=== PATIENT | female | born 1970 | race Caucasian/White ===

== ENCOUNTER 2020-01-15 00:39 | Emergency (ER) | payer SELFPAY ==
[~2020-01-15] VITALS: Ht 170.2 cm; Wt 86.2 kg
[~2020-01-15 00:39] MED LIST: DESV50 PO; ISOMON30 PO
[2020-01-15 01:09] LABS: BASOPHILS ABSOLUTE AUTO 0.04 K/mm3 (0.00-0.23); BASOPHILS PERCENT AUTO 0 % (0-2); EOSINOPHILS ABSOLUTE AUTO 0.17 K/mm3 (0.00-0.68); EOSINOPHILS PERCENT AUTO 1 % (0-6); Hematocrit 42.3 % (33.0-51.0); Hemoglobin 14.4 g/dL (11.5-16.0); IMMATURE GRAN ABSOLUTE AUTO 0.03 K/mm3 (0.00-0.10); IMMATURE GRAN PERCENT AUTO 0 % (0-1); LYMPHOCYTES ABSOLUTE AUTO 3.58 K/mm3 (0.84-5.20); LYMPHOCYTES PERCENT AUTO 29 % (21-46); MONOCYTES ABSOLUTE AUTO 1.15 K/mm3 (0.16-1.47); MONOCYTES PERCENT AUTO 9 % (4-13); Mean Corpuscular HGB 31.9 pg (26.0-34.0); Mean Corpuscular Volume 94 fL (80-100); NEUTROPHILS ABSOLUTE AUTO 7.33 K/mm3 (1.96-9.15); NEUTROPHILS PERCENT AUTO 60 % (41-73); Platelet Count 211 K/mm3 (150-400); RDW Coefficient Variation 13.2 % (11.7-14.2); RDW Standard Deviation 45.1 fL (35.1-46.3); Red Blood Cell Count 4.51 M/mm3 (3.80-5.20)
[2020-01-15 01:28] LABS: Troponin I <0.015 ng/mL (0.000-0.040)
[2020-01-15 01:29] LABS: Alanine Aminotransfer (ALT/SGP 18 U/L (12-78); Albumin, Blood 3.6 g/dL (3.4-5.0); Alk Phos 40 U/L (50-136); Anion Gap 5 mmol/L (6-16); Aspartate Aminotrans (AST/SGOT 5 U/L (12-37); Bilirubin, Total 0.4 mg/dL (0.1-1.0); Blood Urea Nitrogen 19 mg/dL (8-24); Bun/Creatinine Ratio 20.1 (12.0-20.0); CO2, Blood 25 mmol/L (21-32); Calcium, Blood 8.7 mg/dL (8.5-10.1); Chloride, Blood 108 mmol/L (98-108); Creatinine, Blood 0.95 mg/dL (0.40-1.00); Globulin, Blood 3.5 g/dL (2.2-4.0); Glomerular Filtration Rate >60 (60-); Glucose, Blood 98 mg/dL (70-99); Potassium, Blood 3.6 mmol/L (3.5-5.5); Sodium, Blood 138 mmol/L (136-145); Total Protein, Blood 7.1 g/dL (6.4-8.2)
== END 2020-01-15 05:20 | disposition home or self-care (01) ==
LOC: ER 00:39
PROVIDERS: Emergency Medicine
DX: R10.13 Epigastric pain (principal); Z88.1 Allergy status to other antibiotic agents
CPT/HCPCS: 36415; 71046; 76705; 80053; 83690; 83735; 84484; 85025; 93005; 93010; J1170

== ENCOUNTER 2020-01-19 22:01 | Inpatient (IN) | payer SELFPAY ==
[~2020-01-19] VITALS: Ht 170.2 cm; Wt 89.4 kg
[2020-01-19 23:22] LABS: Hematocrit 37.3 % (33.0-51.0); Mean Corpuscular HGB 31.6 pg (26.0-34.0); Mean Corpuscular HGB Conc 34.9 g/dL (31.5-36.5); Mean Corpuscular Volume 91 fL (80-100); Mean Platelet Volume 10.8 fL (9.1-12.4); Platelet Count 225 K/mm3 (150-400); RDW Coefficient Variation 13.7 % (11.7-14.2); RDW Standard Deviation 45.7 fL (35.1-46.3); Red Blood Cell Count 4.11 M/mm3 (3.80-5.20); White Blood Cell Count 12.97 K/mm3 (4.00-11.30)
[2020-01-19 23:52] LABS: Alanine Aminotransfer (ALT/SGP 29 U/L (12-78); Albumin, Blood 2.5 g/dL (3.4-5.0); Albumin/Globulin Ratio 0.6 (0.8-1.8); Alk Phos 119 U/L (50-136); Anion Gap 11 mmol/L (6-16); Aspartate Aminotrans (AST/SGOT 22 U/L (12-37); Bilirubin, Total 2.1 mg/dL (0.1-1.0); Blood Urea Nitrogen 17 mg/dL (8-24); Bun/Creatinine Ratio 17.7 (12.0-20.0); CO2, Blood 23 mmol/L (21-32); Chloride, Blood 106 mmol/L (98-108); Creatinine, Blood 0.96 mg/dL (0.40-1.00); Globulin, Blood 4.5 g/dL (2.2-4.0); Glomerular Filtration Rate >60 (60-); Glucose, Blood 118 mg/dL (70-99); Potassium, Blood 3.1 mmol/L (3.5-5.5); Sodium, Blood 140 mmol/L (136-145); Troponin I <0.015 ng/mL (0.000-0.040)
[2020-01-20 00:07] LABS: BAND PERCENT MAN 25 % (0-8); BASOPHILS PERCENT MAN 0 % (0-2); EOSINOPHILS PERCENT MAN 0 % (0-6); LYMPHOCYTES ABSOLUTE MAN 0.12 K/mm3 (0.84-5.20); LYMPHOCYTES PERCENT MAN 1 % (21-46); MONOCYTES ABSOLUTE MAN 0.64 K/mm3 (0.16-1.47); MONOCYTES PERCENT MAN 5 % (4-13); NEUTROPHILS ABSOLUTE MAN 12.19 K/mm3 (1.96-9.15); SEG NEUTROPHILS PERCENT MAN 69 % (41-73); TOTAL CELLS COUNTED 100
[2020-01-20 00:34] LABS: International Normalized Ratio 1.12; Prothrombin Time Results 11.9 Sec (9.7-11.5)
[2020-01-20 00:36] LABS: Source, Urine Clean Catch
[2020-01-20 00:39] LABS: Blood, Urine 2+ (Neg); Glucose Qualitative, Urine Neg (Neg); Ketones, Urine 3+ (Neg); Leukocyte Esterase, Urine 1+ (Neg); Nitrite, Urine Neg (Neg); Protein, Urine 2+ (Neg); Specific Gravity, Urine 1.015 (1.003-1.022); Urobilinogen, Urine 1+ (Normal)
[2020-01-20 00:42] LABS: Appearance, Urine Hazy (Clear); Bilirubin, Urine 1+ (Neg); Color, Urine Amber (P-Yellow)
[2020-01-20 00:46] LABS: Bacteria Mod /hpf; Red Blood Cells, Urine 0-2 /hpf (0-2); Squamous Epithelial Cells Few /hpf (Few)
[2020-01-20] MEDS ORDERED: ASCO500 PO (03:32)
[2020-01-20] MEDS ORDERED: ACET500 PO (03:33)
[2020-01-20] MEDS ORDERED: MYLANTA GAS MIN42 MG PO (03:33)
[2020-01-20] MEDS ORDERED: NAPR500 PO (03:34)
--- NOTE | 2020-01-20 05:08 | NUR ---
ASSUMED CARE OF PATIENT AT APPROXIMATELY 0325 FROM ED PARI Inman PATIENT ARRIVED TO UNIT VIA STRETCHER; TRANSFER FROM ED TO PCU VERBAL CUES. PATIENT ALERT AND ORIENTED X4; SBA OUT OF BED. PATIENT REPORTS PAIN IN ABDOMEN 5-7; 10 WITH SPASMS; PATIENT YELLS OUT IN PAIN; REPORT PAIN MEDICATION WAS WEARING OFF SHORTLY UPON ARRIVAL TO UNIT; CALLED DR. SARAVIA; ORDERS FOR ONE TIME DOSE. PATIENT ANXIOUS; REPORTS SCD'S MAKE HER FEEL MORE ANXIOUS; CURRENTLY REFUSING. PATIENT'S JEWELRY AND CONTACTS TAKEN OUT; PATIENT TO TAKE BELONGINGS WITH HIM; PATIENT TO HAVE SURGERY THIS MORNING; TOLD BY ER SHE WAS FIRST IN LINE. ADMISSION COMPLETE. NPO. IVF INFUSING PER ORDER. PATIENT CURRENTLY RESTING IN BED; CALL LIGHT IN REACH; BED IN LOWEST POSISTION; WILL CONTINUE TO MONITOR AND ASSESS UNTIL END OF SHIFT.
[2020-01-20 05:18] LABS: Hematocrit 33.3 % (33.0-51.0); Hemoglobin 11.7 g/dL (11.5-16.0); Mean Corpuscular HGB 31.9 pg (26.0-34.0); Mean Corpuscular HGB Conc 35.1 g/dL (31.5-36.5); Mean Corpuscular Volume 91 fL (80-100); Mean Platelet Volume 10.6 fL (9.1-12.4); Platelet Count 210 K/mm3 (150-400); RDW Coefficient Variation 13.8 % (11.7-14.2); RDW Standard Deviation 46.2 fL (35.1-46.3); Red Blood Cell Count 3.67 M/mm3 (3.80-5.20); White Blood Cell Count 20.59 K/mm3 (4.00-11.30)
[2020-01-20 05:28] LABS: Anion Gap 8 mmol/L (6-16); Blood Urea Nitrogen 15 mg/dL (8-24); Bun/Creatinine Ratio 17.4 (12.0-20.0); CO2, Blood 23 mmol/L (21-32); Calcium, Blood 8.3 mg/dL (8.5-10.1); Chloride, Blood 110 mmol/L (98-108); Creatinine, Blood 0.86 mg/dL (0.40-1.00); Glomerular Filtration Rate >60 (60-); Glucose, Blood 115 mg/dL (70-99); Potassium, Blood 3.7 mmol/L (3.5-5.5); Sodium, Blood 141 mmol/L (136-145)
[2020-01-20 05:51] LABS: BAND PERCENT MAN 20 % (0-8); BASOPHILS PERCENT MAN 0 % (0-2); EOSINOPHILS PERCENT MAN 0 % (0-6); LYMPHOCYTES ABSOLUTE MAN 0.41 K/mm3 (0.84-5.20); LYMPHOCYTES PERCENT MAN 2 % (21-46); MONOCYTES ABSOLUTE MAN 0.82 K/mm3 (0.16-1.47); MONOCYTES PERCENT MAN 4 % (4-13); NEUTROPHILS ABSOLUTE MAN 19.35 K/mm3 (1.96-9.15); SEG NEUTROPHILS PERCENT MAN 74 % (41-73); TOTAL CELLS COUNTED 100
--- NOTE | 2020-01-20 06:47 | NUR ---
PATIENT DID NOT SLEEP; MEDICATED FOR PAIN PER EMAR. URSULA FROM SURGERY CALLED; ON WAY TO BUOY TENDER PATIENT; S/L PATIENT. VSS. WILL CONTINUE TO MONITOR AND ASSESS UNTIL END OF SHIFT.
--- NOTE | 2020-01-20 07:15 | NUR ---
pt was taken to OR at shift change.
--- NOTE | 2020-01-20 07:18 | NUR ---
INTO SDS VIA GURNEY FROM PCU ROOM. History, Chart, Medications and Allergies reviewed before start of procedure.Patient confirms NPO status and agrees with scheduled surgery. Lungs clear T/O to Auscultation. Surgical site prepped with 2% Chlorhexidine cloth wipe.
--- NOTE | 2020-01-20 08:14 | NUR ---
01/20/20 0814 Henrietta Guardado PT ON SCHEDULED ANTIBIOTICS
--- NOTE | 2020-01-20 12:01 | NUR ---
pt returned to room from pacu report was given from Alexx RN, she came back with ng drainging red fluid, on lis, she is nausiated, zofran was given, montoya cath draining dk urine, she is a/ox3, pleasant and cooperative with care, lungs are clear, she is currently on 5 liters oxy, no cough noted, hrr, tele in place running sr per monitor, see strip, no edema noted, ppp+2, cap refill <3sec, vs stable, afebrile, iv sites are clear and patent, infusing lr at 100ml/hr, abd has midline incision with luh dressing, and braeden drain in place draining red fluid, she had a laparotomy, fredi pan, call light in reach.
--- NOTE | 2020-01-20 12:09 | NUR ---
pt left for surgical floor report was given to recieving nurse. taken via bed with all her belongings, and spouce in attendence.
--- NOTE | 2020-01-20 12:25 | NUR ---
PATIENT TRANSFER NOTE: PATIENT WAS TRANSFERRED AT THIS TIME. SHE IS ALERT AND ORIENTATED. SHE HAS HER NG TUBE ON LOW SUCTION WITH SOME REDISH/BROWN OUTPUT. HER MIDLINE DENICE AND SHILA DRAIN SITES OR D/C/I. SHE IS CURRENTLY ON AN OXIMIZER WITH 4L. I WAS ABLE TO GIVE HER SOME PAIN MEDICATION PER EMAR TO HELP HER. SHE STATED THAT SHE IS COMFORTABLE FOR NOW. CALL LIGHT IS WITHIN REACH. PATIENT HAS A GUEST WITH HER AT BEDSIDE. SHE IS ALSO NPO AND HAS SOME WET ORAL SPONGES CURRENTLY. WILL CONTINUE TO MONITOR AND MEDICATE NEEDED.
--- NOTE | 2020-01-20 15:42 | NUR ---
SHIFT SUMMARY: PT WAS TRANSFERRED HERE MIDWAY THROUGH SHIFT. SHE HAS AN NG TUBE THAT HAS DARK RED/MALOU COLOR. SHE HAS A SHILA DRAIN AND A MIDLINE DENICE DRESSING. SHILA DRAIN HAS SEROSANGUINEOUS IN THE BULB. THE MIDLINE DENICE DRESSING IS D/C/I. PATIENT HAS BEEN SLEEPY BUT AROUSABLE DURING SHIFT. SHE IS ALERT AND ORIENTED X4. SHE IS CURRENTLY NPO, BUT IS HAVING WET ORAL SPONGES. SHE HAD A FRIEND WITH HER IN THE ROOM EARLIER. WILL CONTINUE TO MONITOR UNTIL ONCOMING SHIFT.
--- NOTE | 2020-01-20 17:57 | NUR ---
Per admit trigger, I met with pt to offer information about ACP. she was clearly in too much pain/discomfort for this conversation. I left information with spouse.
[2020-01-21 05:00] LABS: Hematocrit 33.4 % (33.0-51.0); Hemoglobin 11.5 g/dL (11.5-16.0); Mean Corpuscular HGB 31.7 pg (26.0-34.0); Mean Corpuscular HGB Conc 34.4 g/dL (31.5-36.5); Mean Corpuscular Volume 92 fL (80-100); Mean Platelet Volume 10.8 fL (9.1-12.4); Platelet Count 247 K/mm3 (150-400); RDW Coefficient Variation 14.3 % (11.7-14.2); RDW Standard Deviation 48.4 fL (35.1-46.3); Red Blood Cell Count 3.63 M/mm3 (3.80-5.20); White Blood Cell Count 22.39 K/mm3 (4.00-11.30)
[2020-01-21 05:16] LABS: Albumin, Blood 1.7 g/dL (3.4-5.0); Anion Gap 7 mmol/L (6-16); Blood Urea Nitrogen 14 mg/dL (8-24); Bun/Creatinine Ratio 17.1 (12.0-20.0); CO2, Blood 25 mmol/L (21-32); Calcium, Blood 8.5 mg/dL (8.5-10.1); Chloride, Blood 109 mmol/L (98-108); Creatinine, Blood 0.82 mg/dL (0.40-1.00); Glomerular Filtration Rate >60 (60-); Glucose, Blood 104 mg/dL (70-99); Phosphorus, Blood 2.1 mg/dL (2.5-4.9); Potassium, Blood 3.5 mmol/L (3.5-5.5); Sodium, Blood 141 mmol/L (136-145)
[2020-01-21 05:22] LABS: BAND PERCENT MAN 34 % (0-8); BASOPHILS PERCENT MAN 0 % (0-2); EOSINOPHILS PERCENT MAN 0 % (0-6); LYMPHOCYTES ABSOLUTE MAN 0.67 K/mm3 (0.84-5.20); LYMPHOCYTES PERCENT MAN 3 % (21-46); MONOCYTES ABSOLUTE MAN 0.67 K/mm3 (0.16-1.47); MONOCYTES PERCENT MAN 3 % (4-13); NEUTROPHILS ABSOLUTE MAN 21.04 K/mm3 (1.96-9.15); SEG NEUTROPHILS PERCENT MAN 60 % (41-73); TOTAL CELLS COUNTED 100
--- NOTE | 2020-01-21 06:58 | NUR ---
SHIFT SUMMARY: CHRISTOPH IS A&OX4. SHE HAS REPORTED DIFFICULTIES WITH PAIN. ORDER TO INCREASE FENTANYL TO Q2 PRN FROM Q4 PRN OBTAINED. ABAD PATENT, DRAINING SARIAH URINE. SHE USES HER CALL LIGHT APPROPRIATELY. NG TUBE TO LOW, INTERMITTENT SUCTION. SHE IS USING THE YAUNKER TO HELP HER CLEAR THE SECRETIONS. SHE IS LYING IN BED WITH HER CALL LIGHT IN REACH. WILL REPORT TO DAY SHIFT RN.
--- NOTE | 2020-01-21 11:12 | NUR ---
DR CLEVELAND HERE TO SEE PT, DR RECENTLY CALLED PER PT REQ FOR SOMETHING FOR THROAT, ALSO REQ TO HAVE NICOTINE PATCH. SEE ORDERS.
--- NOTE | 2020-01-21 12:48 | NUR ---
DR PIERCE HERE TO SEE PT.
--- NOTE | 2020-01-21 18:12 | NUR ---
SHIFT SUMMARY PT BEEN NPO. PT NOW ABLE TO HAVE ICE CHIPS. PT CONT TO HAVE NGT, SHILA. JENNIFFER WAS DC'D THIS AFTERNOON WITH PT NOT VOIDING YET. PT WAS UP TO CHAIR EARLIER TODAY. PT PAIN NOW CONTROLLED WITH CLAY PROCESSING LABOURER. PT HAS PIC IN PLACE. FAMILY IN/OUT OF ROOM.
[2020-01-22 05:42] LABS: Hematocrit 30.4 % (33.0-51.0); Hemoglobin 10.3 g/dL (11.5-16.0); Mean Corpuscular HGB 31.2 pg (26.0-34.0); Mean Corpuscular HGB Conc 33.9 g/dL (31.5-36.5); Mean Corpuscular Volume 92 fL (80-100); Mean Platelet Volume 10.9 fL (9.1-12.4); Platelet Count 273 K/mm3 (150-400); RDW Coefficient Variation 14.3 % (11.7-14.2); RDW Standard Deviation 48.6 fL (35.1-46.3); White Blood Cell Count 26.01 K/mm3 (4.00-11.30)
[2020-01-22 06:01] LABS: BAND PERCENT MAN 12 % (0-8); BASOPHILS PERCENT MAN 0 % (0-2); EOSINOPHILS PERCENT MAN 0 % (0-6); LYMPHOCYTES ABSOLUTE MAN 1.04 K/mm3 (0.84-5.20); LYMPHOCYTES PERCENT MAN 4 % (21-46); MONOCYTES ABSOLUTE MAN 1.56 K/mm3 (0.16-1.47); MONOCYTES PERCENT MAN 6 % (4-13); SEG NEUTROPHILS PERCENT MAN 78 % (41-73); TOTAL CELLS COUNTED 100
[2020-01-22 06:03] LABS: Albumin, Blood 1.5 g/dL (3.4-5.0); Anion Gap 7 mmol/L (6-16); Blood Urea Nitrogen 16 mg/dL (8-24); Bun/Creatinine Ratio 20.1 (12.0-20.0); CO2, Blood 26 mmol/L (21-32); Calcium, Blood 8.1 mg/dL (8.5-10.1); Chloride, Blood 107 mmol/L (98-108); Glomerular Filtration Rate >60 (60-); Glucose, Blood 78 mg/dL (70-99); Phosphorus, Blood 2.4 mg/dL (2.5-4.9); Potassium, Blood 3.5 mmol/L (3.5-5.5); Sodium, Blood 140 mmol/L (136-145)
--- NOTE | 2020-01-22 08:40 | NUR ---
DR. CLEVELAND NOTIFIED AT THIS TIME OF PT'S HYPERTENSION, SEE NEW ORDERS.
--- NOTE | 2020-01-22 18:35 | NUR ---
SUMMARY: PT IS POD 2 FOR GRAM PATCH. NO ACUTE CHANGE TODAY. HTN NOTED, GIVEN PRN HYDRALAZINE, ASYMPTOMATIC. ALL OTHER VSS. A/O. SURGICAL SITES WNL. SP02 >90% ON RA. PT REPORTS ELECTRIC LOCOMOTIVE FIRER/FIREMAN MANAGING PAIN WELL. PT ABLE TO TAKE X2 WALKS IN THE [place] WAY. PT HAS DENIED N/V, ABD IS MILDLY DISTENDED. MINIMAL OUT FROM NGT. DR. PIERCE MADE AWARE OF NGT OUTPUT, PLAN TO KEEP TO SUCTION OVERNIGHT. PT ATTENTIVE AT BEDSIDE. NO SAFETY CONCERNS AT THIS TIME.
--- NOTE | 2020-01-23 05:51 | NUR ---
SHIFT SUMMARY POD 3 AA0X4, VSS. PT PAIN TOLERABLE WITH MACHINE ENGRAVER, OCCASIONAL BACK PAIN THAT WAS DIFFICULT TO MANAGE WITH MEDICATION, K PACK PLACED ON BACK FOR COMFORT AND FREQUENT REPOSITIONING. DRESSING CDI. PT UP TO BSC COMMODE, VOIDING WELL. PT REPORTS PASSING GAS AND HAS ATTEMPTED TO HAVE BM. AMBULATES WELL TO BATHROOM, MINIMAL WEAKNESS. DENIES SOB ON EXERTION. 1L OXYGEN PROVIDED DURING SLEEP, SATS REMAINED ABOVE 92 ON 1L. NGT ON LOW INTERMITTENT, MINIMAL OUTPUT TODAY. SHILA PATENT AND DRAINING. AFFECT FLAT THROUGHOUT THE SHIFT, BUT PATIENT HAS STILL MAINTAINED MAKING JOKES WITH STAFF TODAY.
[2020-01-23 09:59] LABS: Albumin, Blood 1.8 g/dL (3.4-5.0); Anion Gap 8 mmol/L (6-16); BASOPHILS ABSOLUTE AUTO 0.03 K/mm3 (0.00-0.23); BASOPHILS PERCENT AUTO 0 % (0-2); Blood Urea Nitrogen 18 mg/dL (8-24); Bun/Creatinine Ratio 20.4 (12.0-20.0); CO2, Blood 26 mmol/L (21-32); Calcium, Blood 8.2 mg/dL (8.5-10.1); Chloride, Blood 106 mmol/L (98-108); Creatinine, Blood 0.88 mg/dL (0.40-1.00); EOSINOPHILS ABSOLUTE AUTO 0.05 K/mm3 (0.00-0.68); EOSINOPHILS PERCENT AUTO 0 % (0-6); Glomerular Filtration Rate >60 (60-); Glucose, Blood 82 mg/dL (70-99); Hematocrit 33.2 % (33.0-51.0); Hemoglobin 11.2 g/dL (11.5-16.0); IMMATURE GRAN ABSOLUTE AUTO 0.09 K/mm3 (0.00-0.10); IMMATURE GRAN PERCENT AUTO 1 % (0-1); LYMPHOCYTES ABSOLUTE AUTO 1.33 K/mm3 (0.84-5.20); LYMPHOCYTES PERCENT AUTO 9 % (21-46); MONOCYTES ABSOLUTE AUTO 1.06 K/mm3 (0.16-1.47); MONOCYTES PERCENT AUTO 7 % (4-13); Mean Corpuscular HGB Conc 33.7 g/dL (31.5-36.5); Mean Corpuscular Volume 92 fL (80-100); Mean Platelet Volume 10.8 fL (9.1-12.4); NEUTROPHILS ABSOLUTE AUTO 12.69 K/mm3 (1.96-9.15); NEUTROPHILS PERCENT AUTO 83 % (41-73); Phosphorus, Blood 3.5 mg/dL (2.5-4.9); Platelet Count 305 K/mm3 (150-400); Potassium, Blood 3.4 mmol/L (3.5-5.5); RDW Coefficient Variation 14.2 % (11.7-14.2); RDW Standard Deviation 47.7 fL (35.1-46.3); Red Blood Cell Count 3.61 M/mm3 (3.80-5.20); Sodium, Blood 140 mmol/L (136-145); White Blood Cell Count 15.25 K/mm3 (4.00-11.30)
--- NOTE | 2020-01-23 11:57 | NUR ---
PT LEFT UNIT AT ABOUT 11:00 FOR UPPER GI STUDY. NOW BACK IN ROOM
--- NOTE | 2020-01-23 16:54 | NUR ---
SUMMARY: PT DID WELL TODAY. NO ACUTE CHANGE. VSS, A/O. SURGICAL SITES WNL. NGT DC'D BY DR. PIERCE THIS AM. PT WILL BE ABLE TO HAVE CLEAR LIQUIDS FOR BREAKFAST TOMORROW . PT AND TOOK WALKS IN THE [place] X2, PT IS HAVING LIQUID BM'S. PT REPORTS THAT WEB ASSISTANT IS MANAGING PAIN. NO N/V, ABD IS SOFT, MILDLY DISTENDED. NO SAFETY CONCERNS. WILL CTM AND REPORT TO LANIE YAÑEZ.
[2020-01-24 04:09] LABS: BASOPHILS ABSOLUTE AUTO 0.03 K/mm3 (0.00-0.23); BASOPHILS PERCENT AUTO 0 % (0-2); EOSINOPHILS ABSOLUTE AUTO 0.13 K/mm3 (0.00-0.68); EOSINOPHILS PERCENT AUTO 1 % (0-6); Hematocrit 28.8 % (33.0-51.0); Hemoglobin 9.9 g/dL (11.5-16.0); IMMATURE GRAN ABSOLUTE AUTO 0.15 K/mm3 (0.00-0.10); IMMATURE GRAN PERCENT AUTO 1 % (0-1); LYMPHOCYTES ABSOLUTE AUTO 1.36 K/mm3 (0.84-5.20); LYMPHOCYTES PERCENT AUTO 10 % (21-46); MONOCYTES ABSOLUTE AUTO 1.06 K/mm3 (0.16-1.47); MONOCYTES PERCENT AUTO 8 % (4-13); Mean Corpuscular HGB 31.2 pg (26.0-34.0); Mean Corpuscular HGB Conc 34.4 g/dL (31.5-36.5); Mean Corpuscular Volume 91 fL (80-100); Mean Platelet Volume 10.4 fL (9.1-12.4); NEUTROPHILS ABSOLUTE AUTO 11.22 K/mm3 (1.96-9.15); NEUTROPHILS PERCENT AUTO 81 % (41-73); Platelet Count 301 K/mm3 (150-400); RDW Coefficient Variation 13.7 % (11.7-14.2); RDW Standard Deviation 46.3 fL (35.1-46.3); Red Blood Cell Count 3.17 M/mm3 (3.80-5.20); White Blood Cell Count 13.95 K/mm3 (4.00-11.30)
[2020-01-24 04:30] LABS: Albumin, Blood 1.6 g/dL (3.4-5.0); Anion Gap 6 mmol/L (6-16); Blood Urea Nitrogen 15 mg/dL (8-24); Bun/Creatinine Ratio 19.4 (12.0-20.0); CO2, Blood 25 mmol/L (21-32); Calcium, Blood 7.7 mg/dL (8.5-10.1); Chloride, Blood 108 mmol/L (98-108); Creatinine, Blood 0.77 mg/dL (0.40-1.00); Glomerular Filtration Rate >60 (60-); Glucose, Blood 101 mg/dL (70-99); Potassium, Blood 3.5 mmol/L (3.5-5.5); Sodium, Blood 139 mmol/L (136-145)
--- NOTE | 2020-01-24 04:41 | NUR ---
SHIFT SUMMARY POD 3 AA0X4, VSS. PT HAS BEEN REPORTING THAT PAIN HAS BEEN INCREASED TODAY. RADIO PRODUCER IS BARELY MANAGING PAIN PER PT. SHE REPORTS BEING ABLE TO SLEEP BUT STILL HAS AN OCCASIONAL GRIMACE ON HER FACE. SHE HAS BEEN ABLE TO AMBULATE TO THE BATHROOM WITH MINIMAL ASSIST. PASSING FLATUS, STILL HAVING LOOSE STOOL. SHILA MINIMAL DRAINAGE TODAY. PICCO COMPRESSED NO DRAINAGE NOTED. TOLERATING PO FLUIDS WELL, NO NAUSEA REPORTED.
--- NOTE | 2020-01-24 17:13 | NUR ---
SHIFT SUMMARY PT A&OX4, VSS, TELE S& 84 BPM, KPAD FOR BACK, PWRGLIDE SUPA. POD4 EXP LAP W/ MARIA DEL CARMEN PATCH, MIDLINE DENICE WNL, SHILA W/SEROUS FLUID 10 MLS OUT, PASSING FLATUS. VOIDING WELL. YVES PO CL DIET. PAIN MANAGED WELL WITH 5 MG NORCO AND LANGUAGE INSTRUCTOR FENT PRN/PT REP DECREASED USE LANGUAGE INSTRUCTOR WITH PO NORCO; LR @ [facility] FOR LANGUAGE INSTRUCTOR; ABX SCHEDULED. AMB TO BRP/HALLWAY, UP TO CHAIR. TCDB & I.S. EDU & ENC Q1H. WILL REPORT TO ONCOMING NOC RN.
--- NOTE | 2020-01-25 06:17 | NUR ---
SHIFT SUMMARY: CHRISTOPH IS A&OX4. VSS, NO ACUTE EVENTS OVERNIGHT. SHE REPORTS SIGNIFICANTLY IMPROVED PAIN CONTROL WITH ONE TABLET OF NORCO 5/325 MG. SHE IS INDEPENDENT TO THE BATHROOM AND IN THE HALLWAY. IV AND POWERGLIDE TO R ARM PATENT. SHE IS TOLERATING CLEAR LIQUID DIET WELL. SHE REPORTS PASSING FLATUS AND LIQUID STOOL. SHE USES HER CALL LIGHT APPROPRIATELY. SHE STATES THAT SHE PLANS TO REMAIN A NONSMOKER AFTER DISCHARGE HOME. SHE IS LYING IN BED WITH HER CALL LIGHT IN REACH. WILL REPORT TO DAY SHIFT RN.
[2020-01-25 06:34] LABS: Hematocrit 32.4 % (33.0-51.0); Hemoglobin 10.9 g/dL (11.5-16.0); Mean Corpuscular HGB 30.7 pg (26.0-34.0); Mean Corpuscular HGB Conc 33.6 g/dL (31.5-36.5); Mean Corpuscular Volume 91 fL (80-100); Mean Platelet Volume 11.2 fL (9.1-12.4); Platelet Count 363 K/mm3 (150-400); RDW Coefficient Variation 13.5 % (11.7-14.2); RDW Standard Deviation 46.1 fL (35.1-46.3); Red Blood Cell Count 3.55 M/mm3 (3.80-5.20); White Blood Cell Count 13.41 K/mm3 (4.00-11.30)
[2020-01-25 06:49] LABS: Albumin, Blood 1.6 g/dL (3.4-5.0); Anion Gap 6 mmol/L (6-16); Blood Urea Nitrogen 11 mg/dL (8-24); Bun/Creatinine Ratio 16.4 (12.0-20.0); CO2, Blood 25 mmol/L (21-32); Calcium, Blood 7.9 mg/dL (8.5-10.1); Chloride, Blood 105 mmol/L (98-108); Creatinine, Blood 0.67 mg/dL (0.40-1.00); Glomerular Filtration Rate >60 (60-); Glucose, Blood 96 mg/dL (70-99); Phosphorus, Blood 3.6 mg/dL (2.5-4.9); Potassium, Blood 3.6 mmol/L (3.5-5.5); Sodium, Blood 136 mmol/L (136-145)
--- NOTE | 2020-01-25 18:46 | NUR ---
SHIFT SUMMARY PT A&OX4, VSS, RA, TELE NSR 73 BPM. POD5 EXP LAP, MIDLINE DENICE WNL, SHILA WITH MINIMAL SEROUS OUT. PAIN MANAGED WITH 5-10 NORCO. POWERGLIDE SUPA, SL EXCEPT FOR ABX ORDERED. AMBULATING TO BRP AND HALLWAY INDEPENDENTLY, UP TO CHAIR T/O SHIFT. YVES REG DIET, DENIES N&V. WILL REPORT TO ONCOMING NOC RN.
--- NOTE | 2020-01-26 04:22 | NUR ---
SHIFT SUMMARY: NO SIGNIFICANT CHANGES THIS SHIFT. PT POD#6 FOR GRAM PATCH R/T PERF ULCER. ACTIVE BT THROUGHOUT. PT REPORTS PASSING FLATUS AND LIQ BM'S. YVES PO. DENIES N/V. SHILA DRAINING A SMALL AMOUNT OF SEROUS FLUID. DENICE WOUND VAC INTACT AND COMPRESSED. PAIN BEING MANAGED WITH 2 NORCO Q4. INDEPENDENT IN ROOM. VOIDING WELL. IV ABX INFUSING PER ORDERS. PLAN TO D/C BOTH SHILA AND DENICE DRESSING TODAY FOR POSSIBLE DISCHARGE.
[2020-01-26 08:40] LABS: Hematocrit 33.1 % (33.0-51.0); Hemoglobin 11.3 g/dL (11.5-16.0); Mean Corpuscular HGB 31.5 pg (26.0-34.0); Mean Corpuscular HGB Conc 34.1 g/dL (31.5-36.5); Mean Corpuscular Volume 92 fL (80-100); Mean Platelet Volume 11.2 fL (9.1-12.4); Platelet Count 433 K/mm3 (150-400); RDW Coefficient Variation 13.4 % (11.7-14.2); Red Blood Cell Count 3.59 M/mm3 (3.80-5.20); White Blood Cell Count 13.11 K/mm3 (4.00-11.30)
[2020-01-26] MEDS ORDERED: OMEP20ER PO (13:48)
[2020-01-26] MEDS ORDERED: OXYC5 PO (13:49)
--- NOTE | 2020-01-26 15:28 | NUR ---
DISCHARGE: PACKET PRINTED AND PT EDUCATED. IV'S DC'D PT LEFT UNIT VIA WHEELCHAIR AT ABOUT 1510
--- NOTE | 2020-01-26 15:29 | NUR ---
DISCHARGE: PACKET PRINTED AND PT EDUCATED. IV'S DC'D. SENT WITH SCRIPT. LEFT UNIT VIA WHEELCHAIR AT ABOUT 1500
== END 2020-01-26 15:19 | disposition home or self-care (01) | DRG 853 ==
LOC: ER 22:01 → PCU 01-20 01:41 → SURS 01-20 12:08
PROVIDERS: Emergency Medicine; Internal Medicine; Surgery; ADMIT Family Medicine
PROC: 0DU607Z Supplement Stomach with Autologous Tissue Substitute, Open Approach (ICD-10-PCS; 2020-01-20)
PROC: 0DQ40ZZ Repair Esophagogastric Junction, Open Approach (ICD-10-PCS; principal; 2020-01-20 07:30)
DX: A41.9 Sepsis, unspecified organism (principal); K25.5 Chronic or unspecified gastric ulcer with perforation; R65.20 Severe sepsis without septic shock; E87.6 Hypokalemia; E83.39 Other disorders of phosphorus metabolism; I10 Essential (primary) hypertension; F32.9 Major depressive disorder, single episode, unspecified; F17.210 Nicotine dependence, cigarettes, uncomplicated
CPT/HCPCS: 36415; 71275; 74175; 74240; 80048; 80053; 80069; 81001; 83605; 83735; 84484; 84703; 85025; 85027; 85610; 85730; 87040; 87086; 93005; 93010; 94762; 96365; 96375; 99285-25; A9270-GY; C9113; J0330; J0360; J1650; J1940; J2250; J2405; J2543; J3010; J3480; J7030; J7050; J7060; J7120; Q9967; U0002

== ENCOUNTER 2020-03-13 14:26 | Inpatient (IN) | payer OTHER ==
[~2020-03-13] VITALS: Ht 170.2 cm; Wt 83.0 kg
[~2020-03-13 14:26] MED LIST changes: +ACET500 PO; +ASCO500 PO; +MYLANTA GAS MIN42 MG PO; +NAPR500 PO; +OMEP20ER PO; +OXYC5 PO
[2020-03-13 15:04] LABS: BASOPHILS ABSOLUTE AUTO 0.04 K/mm3 (0.00-0.23); BASOPHILS PERCENT AUTO 0 % (0-2); EOSINOPHILS PERCENT AUTO 0 % (0-6); Hematocrit 32.4 % (33.0-51.0); Hemoglobin 10.6 g/dL (11.5-16.0); IMMATURE GRAN ABSOLUTE AUTO 0.15 K/mm3 (0.00-0.10); IMMATURE GRAN PERCENT AUTO 1 % (0-1); LYMPHOCYTES ABSOLUTE AUTO 1.88 K/mm3 (0.84-5.20); LYMPHOCYTES PERCENT AUTO 9 % (21-46); MONOCYTES PERCENT AUTO 9 % (4-13); Mean Corpuscular HGB 29.2 pg (26.0-34.0); Mean Corpuscular HGB Conc 32.7 g/dL (31.5-36.5); Mean Corpuscular Volume 89 fL (80-100); Mean Platelet Volume 9.1 fL (9.1-12.4); NEUTROPHILS ABSOLUTE AUTO 17.55 K/mm3 (1.96-9.15); NEUTROPHILS PERCENT AUTO 82 % (41-73); Platelet Count 746 K/mm3 (150-400); RDW Coefficient Variation 13.8 % (11.7-14.2); RDW Standard Deviation 44.6 fL (35.1-46.3); Red Blood Cell Count 3.63 M/mm3 (3.80-5.20); White Blood Cell Count 21.52 K/mm3 (4.00-11.30)
[2020-03-13 15:31] LABS: Alanine Aminotransfer (ALT/SGP 38 U/L (12-78); Albumin, Blood 2.7 g/dL (3.4-5.0); Albumin/Globulin Ratio 0.4 (0.8-1.8); Alk Phos 453 U/L (50-136); Anion Gap 9 mmol/L (6-16); Aspartate Aminotrans (AST/SGOT 13 U/L (12-37); Bilirubin, Total 0.9 mg/dL (0.1-1.0); Blood Urea Nitrogen 8 mg/dL (8-24); Bun/Creatinine Ratio 11.8 (12.0-20.0); CO2, Blood 26 mmol/L (21-32); Calcium, Blood 10.1 mg/dL (8.5-10.1); Chloride, Blood 96 mmol/L (98-108); Creatinine, Blood 0.68 mg/dL (0.40-1.00); Globulin, Blood 6.5 g/dL (2.2-4.0); Glomerular Filtration Rate >60 (60-); Glucose, Blood 113 mg/dL (70-99); Sodium, Blood 131 mmol/L (136-145); Total Protein, Blood 9.2 g/dL (6.4-8.2)
[2020-03-13] MEDS ORDERED: TRAM50 PO (16:15)
[2020-03-13] MEDS ORDERED: CYCL10 PO (16:18)
[2020-03-13] MEDS ORDERED: OMEP20ER PO (19:17)
[2020-03-13 21:49] LABS: International Normalized Ratio 1.32; Prothrombin Time Results 13.9 Sec (9.7-11.5)
--- NOTE | 2020-03-14 04:40 | NUR ---
CLINICAL UNIT EDUCATOR SUMMARY PT RECIEVED FROM THE ED AT 2100 AND WAS IN SEVERE PAIN AND WAS COUGHING UP LARGE AMOUNTS OF BLOODY SPUTUM. PT MEDICATED PER JUL W RELIEF. PT HAD MULTIPLE EPISODES OF HEMOPTYSISTHROUGH OUT THE NIGHT BUT SHOWED IMPROVEMENT W LESS BLOOD THE NIGHT WENT ON. PT DENIED ANY SOB OR NAUSEA. PT AXO X4 PLEASANT AND COOPERATIVE.
[2020-03-14 05:04] LABS: BASOPHILS ABSOLUTE AUTO 0.04 K/mm3 (0.00-0.23); BASOPHILS PERCENT AUTO 0 % (0-2); EOSINOPHILS ABSOLUTE AUTO 0.01 K/mm3 (0.00-0.68); EOSINOPHILS PERCENT AUTO 0 % (0-6); Hematocrit 26.4 % (33.0-51.0); Hemoglobin 8.5 g/dL (11.5-16.0); IMMATURE GRAN ABSOLUTE AUTO 0.12 K/mm3 (0.00-0.10); IMMATURE GRAN PERCENT AUTO 1 % (0-1); LYMPHOCYTES ABSOLUTE AUTO 1.64 K/mm3 (0.84-5.20); LYMPHOCYTES PERCENT AUTO 9 % (21-46); MONOCYTES ABSOLUTE AUTO 1.95 K/mm3 (0.16-1.47); MONOCYTES PERCENT AUTO 11 % (4-13); Mean Corpuscular HGB 28.4 pg (26.0-34.0); Mean Corpuscular HGB Conc 32.2 g/dL (31.5-36.5); Mean Corpuscular Volume 88 fL (80-100); Mean Platelet Volume 9.2 fL (9.1-12.4); NEUTROPHILS ABSOLUTE AUTO 14.47 K/mm3 (1.96-9.15); NEUTROPHILS PERCENT AUTO 79 % (41-73); Platelet Count 570 K/mm3 (150-400); RDW Coefficient Variation 13.9 % (11.7-14.2); RDW Standard Deviation 45.1 fL (35.1-46.3); Red Blood Cell Count 2.99 M/mm3 (3.80-5.20); White Blood Cell Count 18.23 K/mm3 (4.00-11.30)
[2020-03-14 05:18] LABS: International Normalized Ratio 1.33
[2020-03-14 05:30] LABS: Alanine Aminotransfer (ALT/SGP 23 U/L (12-78); Albumin/Globulin Ratio 0.4 (0.8-1.8); Alk Phos 326 U/L (50-136); Anion Gap 8 mmol/L (6-16); Aspartate Aminotrans (AST/SGOT 7 U/L (12-37); Bilirubin, Total 1.2 mg/dL (0.1-1.0); Blood Urea Nitrogen 8 mg/dL (8-24); Bun/Creatinine Ratio 12.9 (12.0-20.0); CO2, Blood 25 mmol/L (21-32); Chloride, Blood 102 mmol/L (98-108); Creatinine, Blood 0.62 mg/dL (0.40-1.00); Globulin, Blood 5.3 g/dL (2.2-4.0); Glomerular Filtration Rate >60 (60-); Glucose, Blood 100 mg/dL (70-99); Potassium, Blood 3.8 mmol/L (3.5-5.5); Sodium, Blood 135 mmol/L (136-145); Total Protein, Blood 7.3 g/dL (6.4-8.2)
--- NOTE | 2020-03-14 18:23 | NUR ---
SHIFT SUMMARY PT IS AOX4. PT MEDICATED FOR PAIN X3 PER EMAR AND X1 FOR FEVER. PT DENIES SOB AND VOMITING BUT DID FEEL NAUSEATED PRIOR TO DINNER. PT IS INDEPENDENT IN ROOM. ABSCESS DRAINED TODAY AND PIGTAIL DRAIN IN PLACE ON RIGHT ABDOMEN. INITIAL OUTPUT FROM DRAIN IS 150ML WITH NO INCREASE SINCE. FAN IN ROOM TO HELP DECREASE TEMP. IN ROOM X2 THIS SHIFT. DIET ADVANCED TO REGULAR AND TOLERATED WELL. PT RUNNING SINUS 90S ON TELE. PT IN BED, CALL LIGHT IN REACH, LOW POSITION.
--- NOTE | 2020-03-15 03:31 | NUR ---
PT DESATURATING 88% O2 SAT. I NOTICED SHALLOW RESPIRATIONS. I ASKED PT IF SHE WAS AFRAID TO BREATHE DEEPLY DUE TO PAIN. SHE ADMITTED THIS WAS THE CASE. I BROUGHT HER A HANDOUT ON HOW TO USE AN INCENTIVE SPIROMETER EFFECTIVELY AND WE DISCUSSED THE BENEFITS OF IT AND HOW IMPORTANT IT IS TO HER HEALING. WE DID PUT ON 3 LPM O2 TEMPORARILY, WE WILL TITRATE DOWN TO RA ABLE.
--- NOTE | 2020-03-15 04:53 | NUR ---
CLIPPER OPERATOR SUMMARY PT A&OX4, ABLE TO MAKE NEEDS KNOWN. PLEASANT AND COOPERATIVE TO CARE. MEDICATED FOR PAIN PER EMAR, MEDICATED FOR NAUSEA X1 THIS SHIFT. ON TELE SINUS TACHY 113 BPM. NO C/O CHEST PAIN. PT ON O2 3LPM VIA NC TEMPORARILY D/T DESAT. R ABD DRAIN PATENT, CONT DRAIN WITHOUT ISSUES, DRESSING CDI TO AA. PT REQUIRES SUPERVISION FROM STAFF WHEN GOING TO BATHROOM. BED AT LOWEST POSITION, CALL LIGHT WITHIN REACH.
[2020-03-15 04:59] LABS: BASOPHILS ABSOLUTE AUTO 0.04 K/mm3 (0.00-0.23); BASOPHILS PERCENT AUTO 0 % (0-2); EOSINOPHILS ABSOLUTE AUTO 0.02 K/mm3 (0.00-0.68); EOSINOPHILS PERCENT AUTO 0 % (0-6); Hematocrit 25.9 % (33.0-51.0); Hemoglobin 8.5 g/dL (11.5-16.0); IMMATURE GRAN PERCENT AUTO 1 % (0-1); LYMPHOCYTES ABSOLUTE AUTO 1.43 K/mm3 (0.84-5.20); LYMPHOCYTES PERCENT AUTO 8 % (21-46); MONOCYTES ABSOLUTE AUTO 1.62 K/mm3 (0.16-1.47); MONOCYTES PERCENT AUTO 9 % (4-13); Mean Corpuscular HGB 28.6 pg (26.0-34.0); Mean Corpuscular HGB Conc 32.8 g/dL (31.5-36.5); Mean Corpuscular Volume 87 fL (80-100); Mean Platelet Volume 9.1 fL (9.1-12.4); NEUTROPHILS ABSOLUTE AUTO 14.15 K/mm3 (1.96-9.15); NEUTROPHILS PERCENT AUTO 82 % (41-73); Platelet Count 645 K/mm3 (150-400); RDW Coefficient Variation 13.8 % (11.7-14.2); RDW Standard Deviation 43.7 fL (35.1-46.3); Red Blood Cell Count 2.97 M/mm3 (3.80-5.20); White Blood Cell Count 17.36 K/mm3 (4.00-11.30)
[2020-03-15 05:24] LABS: Alanine Aminotransfer (ALT/SGP 24 U/L (12-78); Albumin, Blood 1.9 g/dL (3.4-5.0); Albumin/Globulin Ratio 0.4 (0.8-1.8); Alk Phos 342 U/L (50-136); Anion Gap 9 mmol/L (6-16); Aspartate Aminotrans (AST/SGOT 12 U/L (12-37); Bilirubin, Total 0.9 mg/dL (0.1-1.0); Blood Urea Nitrogen 7 mg/dL (8-24); Bun/Creatinine Ratio 10.2 (12.0-20.0); CO2, Blood 24 mmol/L (21-32); Calcium, Blood 9.1 mg/dL (8.5-10.1); Chloride, Blood 100 mmol/L (98-108); Creatinine, Blood 0.69 mg/dL (0.40-1.00); Globulin, Blood 5.4 g/dL (2.2-4.0); Glomerular Filtration Rate >60 (60-); Glucose, Blood 107 mg/dL (70-99); Potassium, Blood 3.5 mmol/L (3.5-5.5); Sodium, Blood 133 mmol/L (136-145); Total Protein, Blood 7.3 g/dL (6.4-8.2)
--- NOTE | 2020-03-15 18:31 | NUR ---
SHIFT SUMMARY PT IS AOX4. PT C/O 11/25 PAIN AND MEDICATED X2 THIS SHIFT PER EMAR. PT HAS SHALLOW BREATHING BUT ENCOURAGED TO USE IS THROUGHOUT SHIFT AND PT DEMONSTRATED X2. PT WALKED IN HALLS X1 THIS SHIFT WITH . IN TO VISIT X2. PT IS IN BED, CALL LIGHT IN REACH, BED IN LOW POSITION.
[2020-03-16 04:49] LABS: BASOPHILS ABSOLUTE AUTO 0.04 K/mm3 (0.00-0.23); BASOPHILS PERCENT AUTO 0 % (0-2); EOSINOPHILS ABSOLUTE AUTO 0.09 K/mm3 (0.00-0.68); EOSINOPHILS PERCENT AUTO 1 % (0-6); Hematocrit 24.2 % (33.0-51.0); IMMATURE GRAN ABSOLUTE AUTO 0.07 K/mm3 (0.00-0.10); IMMATURE GRAN PERCENT AUTO 1 % (0-1); LYMPHOCYTES ABSOLUTE AUTO 1.73 K/mm3 (0.84-5.20); LYMPHOCYTES PERCENT AUTO 13 % (21-46); MONOCYTES ABSOLUTE AUTO 1.18 K/mm3 (0.16-1.47); MONOCYTES PERCENT AUTO 9 % (4-13); Mean Corpuscular HGB Conc 33.1 g/dL (31.5-36.5); Mean Corpuscular Volume 88 fL (80-100); Mean Platelet Volume 9.2 fL (9.1-12.4); NEUTROPHILS ABSOLUTE AUTO 9.99 K/mm3 (1.96-9.15); NEUTROPHILS PERCENT AUTO 76 % (41-73); NRBC ABSOLUTE 0.02 K/mm3 (0.00-0.02); NRBC Auto 0.2 /100 WBC (0.0-0.2); Platelet Count 597 K/mm3 (150-400); RDW Coefficient Variation 14.2 % (11.7-14.2); RDW Standard Deviation 45.1 fL (35.1-46.3); Red Blood Cell Count 2.76 M/mm3 (3.80-5.20)
--- NOTE | 2020-03-16 05:14 | NUR ---
LAY OUT WORKER SUMMARY PT A&OX4, ABLE TO MAKE NEEDS KNOWN. PLEASANT AND COOPERATIVE TO CARE. MEDICATED FOR PAIN ON R ABD PER EMAR. PT CONT TO EXPECTORATE MINIMAL AMOUNT OF BLOOD TINGED SPUTUM. ABD DRAIN IN PLACE, DRAINING, DRESSING CDI TO AA. PT ON TELE SR 99, NO C/O CHEST PAIN, DENIES SOB, DENIES N&V. BED AT LOWEST POSITION, CALL LIGHT WITHIN REACH. WILL REPORT TO ONCOMING RN.
[2020-03-16 05:29] LABS: Alanine Aminotransfer (ALT/SGP 41 U/L (12-78); Albumin, Blood 1.8 g/dL (3.4-5.0); Albumin/Globulin Ratio 0.4 (0.8-1.8); Alk Phos 358 U/L (50-136); Anion Gap 10 mmol/L (6-16); Aspartate Aminotrans (AST/SGOT 32 U/L (12-37); Bilirubin, Total 0.4 mg/dL (0.1-1.0); Blood Urea Nitrogen 7 mg/dL (8-24); Bun/Creatinine Ratio 9.6 (12.0-20.0); CO2, Blood 25 mmol/L (21-32); Calcium, Blood 8.9 mg/dL (8.5-10.1); Chloride, Blood 101 mmol/L (98-108); Creatinine, Blood 0.73 mg/dL (0.40-1.00); Globulin, Blood 5.1 g/dL (2.2-4.0); Glomerular Filtration Rate >60 (60-); Glucose, Blood 118 mg/dL (70-99); Potassium, Blood 3.6 mmol/L (3.5-5.5); Sodium, Blood 136 mmol/L (136-145); Total Protein, Blood 6.9 g/dL (6.4-8.2)
--- NOTE | 2020-03-16 11:21 | NUR ---
Advance Directive (AD) education/spiritual care visit conducted. Patient is sitting up in bed and alert. Patient does not recall requesting info for AD, so explain about the form and its purpose. Patient is minimally interested but does take a form to look at later. I also talk with patient about her medical issues, her family and her fears. Patient explains that she does not attend scientologist but her [id number] is her spiritual guide. I normalize patient's fears, and provide therapeutic listening and prayer. Patient responds well and displays evidence of increased peace. I will continue to remain available to aptient and family.
--- NOTE | 2020-03-16 17:26 | NUR ---
DISCHARGE/TRANSFER SUMMARY THIS RN CALLED REPORT TO PARI JEFFRIES AT [facility]. DR. PACE UPDATED ON TRANSFER STATUS. INFORMATION FAXED TO HOSPITAL. PT IV SALINE LOCKED IN RIGHT AND LEFT ARMS. PRESENT IN ROOM. BELONGINGS WITH PT AND . PT IS AOX4 AND ON RA. PT INDEPENDENT IN ROOM. PT CURRENTLY AWAITING [facility] TO [facility].
== END 2020-03-16 18:20 | disposition short-term general hospital (02) | DRG 862 ==
LOC: ER 14:26 → MEDS 19:12 → EDBEDREQTM 20:19 → EDBEDREQ 20:19 → MEDS 20:51
PROVIDERS: Emergency Medicine; Internal Medicine; Surgery; ADMIT Internal Medicine
PROC: 0F9130Z Drainage of Right Lobe Liver with Drainage Device, Percutaneous Approach (ICD-10-PCS; principal; 2020-03-14)
DX: T81.43XA Infection following a procedure, organ and space surgical site, initial encounter (principal); K75.0 Abscess of liver; J85.1 Abscess of lung with pneumonia; K65.1 Peritoneal abscess; Z87.891 Personal history of nicotine dependence
CPT/HCPCS: 36415; 49405; 71046; 71260; 74150; 74160; 80053; 83605; 85025; 85610; 85730; 87040; 87070; 87075; 87076; 87205; 88108; 93005; 93010; 96361; 96365; 96366; 96367; 96375; 99285-25; A9270; J0692; J2270; J2405; J2543; J3010; J3370; J7030; J7050; J7120; Q9967; U0004

== ENCOUNTER 2020-05-23 09:01 | Day surgery (SDC) | payer OTHER ==
[~2020-05-23] VITALS: Ht 170.2 cm; Wt 88.2 kg
[~2020-05-23 09:01] MED LIST changes: +CYCL10 PO; +TRAM50 PO
[2020-05-23] MEDS ORDERED: ASPI81CH (09:26)
[2020-05-23] MEDS ORDERED: IRON18 MG (09:26)
== END 2020-05-23 11:02 | disposition home or self-care (01) ==
LOC: ORSCSDS 09:01
PROVIDERS: Surgery
PROC: 0DB78ZX Excision of Stomach, Pylorus, Via Natural or Artificial Opening Endoscopic, Diagnostic (ICD-10-PCS; principal; 2020-05-23 10:30)
PROC: 0DB58ZX Excision of Esophagus, Via Natural or Artificial Opening Endoscopic, Diagnostic (ICD-10-PCS; principal; 2020-05-23 10:30)
DX: K27.9 Peptic ulcer, site unspecified, unspecified as acute or chronic, without hemorrhage or perforation (principal); K29.70 Gastritis, unspecified, without bleeding; K22.70 Barrett's esophagus without dysplasia; K44.9 Diaphragmatic hernia without obstruction or gangrene; Z87.891 Personal history of nicotine dependence
CPT/HCPCS: 88305; 88342; J0330; J0461; J2405; J2704; J7120

== ENCOUNTER → 2021-02-06 | Outpatient (CLI) | payer OTHER ==
[~2021-02-06] MED LIST changes: +ASPI81CH; +IRON18 MG
== END | disposition home or self-care (01) ==
LOC: LAB SHORT 08:06
DX: B35.1 Tinea unguium (principal)
CPT/HCPCS: 88305; 88312